=== PATIENT | male | born 1930 | race Caucasian/White ===

== ENCOUNTER 2017-06-22 19:43 | Observation (INO) | payer OTHER, BC ==
--- NOTE | 2017-06-22 20:00 | PDOC ---
History of Present Illness - General History Source: Patient, Family (Daughter) Exam Limitations: No Limitations - History of Present Illness Initial Comments: 06/22/17 20:54 The patient is a 77 year old male, with a significant past medical history of Colon/Rectal CA, PPM, CVA (2004), Diabetes, HTN, who presents to the emergency department s/p weakness to L side today afternoon. As per daughter at bedside, patient was at home with VNS at approximately 2 pm when they noticed the patient was more weak than usual. Patient was on a phone call and was immediately agitated. As the patient got up from his seat, he was unable to ambulate and felt very weak. EMS was called to the home for possible CVA/TIA however patient was increasingly agitated. As per EMS, patient was given Versed and was brought to the ED for further evaluation. Patient denies any falls, injury or trauma. Patient also reports blurring of R eye which he reports is chronic.He denies chest pain, headache or dizziness. He denies fever, chills, abdominal pain, nausea, vomit, diarrhea or constipation. He denies dysuria, frequency, urgency or hematuria. Allergies: NKA Past surgical history: Colon resection, appendectomy, PPM placement Social history: Former smoker PCP: Dr. Mantilla <Raissa Zamorano - Last Filed: 06/22/17 22:07> <So Bernstein - Last Filed: 06/23/17 00:14> - General Stated Complaint: STROKE NIH Stroke Scale - Last Known Well Date/Time & Onset Date Last Known Well: 06/22/17 Time Last Known Well: 14:00 - Initial Evaluation Level of consciousness: Alert Ask patient the month and their age: Answers both correctly Ask patient to open & close eyes; make fist and let go: Obeys both correctly Best gaze (horizontal eye movement): Normal Visual field testing: No visual field loss Facial paresis (Show teeth/raise eyebrows/close eyes tight): Minor paralysis ( flattened nasolabial fold, asymmetry on smiling) (L face) Motor Function: Left Arm: Normal Motor Function: Right Arm: Normal (extends arm 90 (or 45) degrees for 10 seconds without drift Motor Function: Left Leg: Normal (extends leg 30 degrees for 5 seconds without drift) Motor Function: Right Leg: Normal (extends leg 30 degrees for 5 seconds without drift) Limb Ataxia: No ataxia Sensory(Use pinprick test arms,legs,trunk,face/side to side): Normal Best language (Describe picture, name items, read sentences): No Aphasia Dysarthria (read several words): Normal articulation Extinction and Inattention: No abnormality - Total Score NIH Stroke Scale Score: 1 <So Bernstein - Last Filed: 06/23/17 00:14> Past History <Raissa Zamorano - Last Filed: 06/22/17 22:07> - Past Medical History Cancer: Yes (colon/rectal) Cardiac Disorders: Yes (ppm) CVA: Yes Diabetes: Yes HTN: Yes Hypercholesterolemia: Yes - Surgical History Abdominal Surgery: Yes (colon resection) Appendectomy: Yes Cardiac Surgery: Yes (ppm, vaulve) Neurologic Surgery: Yes (back) - Psycho/Social/Smoking Cessation Hx Anxiety: No Suicidal Ideation: No Smoking History: Former smoker Have you smoked in the past 12 months: No Hx Alcohol Use: No Drug/Substance Use Hx: No Substance Use Type: Alcohol <So Bernstein - Last Filed: 06/23/17 00:14> - Past Medical History Allergies/Adverse Reactions: Allergies Allergy/AdvReac Type Severity Reaction Status Date / Time No Known Allergies Allergy Verified 06/22/17 20:06 Home Medications: Ambulatory Orders Aspirin Coated [Ecotrin -] 81 mg PO DAILY 06/22/17 Donepezil HCl [Aricept -] 5 mg PO DAILY 06/22/17 Fenofibrate Nanocrystallized [Fenofibrate] 145 mg PO DAILY 06/22/17 Furosemide [Lasix -] 20 mg PO DAILY 06/22/17 Linagliptin [Tradjenta] 5 mg PO DAILY 06/22/17 Nebivolol HCl [Bystolic] 20 mg PO DAILY 06/22/17 Nisoldipine [Sular] 24 mg PO DAILY 06/22/17 Pravastatin Sodium [Pravachol (Nf)] 40 mg PO HS 06/22/17 Tamsulosin HCl [Flomax] 0.4 mg PO DAILY 06/22/17 Review of Systems - Review of Systems Able to Perform ROS?: Yes Comments:: 06/22/17 20:55 CONSTITUTIONAL: Absent: fever, chills, diaphoresis, generalized weakness, malaise, loss of appetite HEENT: Absent: rhinorrhea, nasal congestion, throat pain, throat swelling, difficulty swallowing, mouth swelling, ear pain, eye pain, visual Changes CARDIOVASCULAR: Absent: chest pain, syncope, palpitations, irregular heart rate, lightheadedness , peripheral edema RESPIRATORY: Absent: cough, shortness of breath, dyspnea with exertion, orthopnea, wheezing, stridor, hemoptysis GASTROINTESTINAL: Absent: abdominal pain, abdominal distension, nausea, vomiting, diarrhea, constipation, melena, hematochezia GENITOURINARY: Absent: dysuria, frequency, urgency, hesitancy, hematuria, flank pain, genital pain MUSCULOSKELETAL: Absent: myalgia, arthralgia, joint swelling SKIN: Absent: rash, itching, pallor HEMATOLOGIC/IMMUNOLOGIC: Absent: easy bleeding, easy bruising, lymphadenopathy, frequent infections ENDOCRINE: Absent: unexplained weight gain, unexplained weight loss, heat intolerance, cold intolerance NEUROLOGIC: Absent: headache, focal weakness or paresthesias, dizziness, unsteady gait, seizure, mental status changes, bladder or bowel incontinence PSYCHIATRIC: Absent: anxiety, depression, suicidal or homicidal ideation, hallucinations. <Raissa Zamorano - Last Filed: 06/22/17 22:07> *Physical Exam - Vital Signs Last Vital Signs Temp Pulse Resp BP Pulse Ox 98.5 F 72 19 132/75 97 06/22/17 19:56 06/22/17 19:56 06/22/17 19:56 06/22/17 19:56 06/22/17 19:56 - Physical Exam Comments: 06/22/17 20:55 GENERAL: Well developed, well nourished. Awake and alert. No acute distress. HEENT: Normocephalic, atraumatic. PERRLA, EOMI. No conjunctival pallor. Sclera are non- icteric. Moist mucous membranes. Oropharynx is clear. NECK: Supple. Full ROM. No JVD. Carotid pulses 2+ and symmetric, without bruits. No thyromegaly. No lymphadenopathy. CARDIOVASCULAR: Regular rate and rhythm. No murmurs, rubs, or gallops. Distal pulses are 2+ and symmetric. PULMONARY: No evidence of respiratory distress. Lungs clear to auscultation bilaterally. No wheezing, rales or rhonchi. ABDOMINAL: Soft. Non-tender. Non-distended. No rebound or guarding. No organomegaly. Normoactive bowel sounds. MUSCULOSKELETAL Normal range of motion at all joints. No bony deformities or tenderness. No CVA tenderness. EXTREMITIES: No cyanosis. No clubbing. No edema. No calf tenderness. SKIN: Warm and dry. Normal capillary refill. No rashes. No jaundice. NEUROLOGICAL: Alert, awake, appropriate. Cranial nerves 2-12 intact. No deficits to light touch and temperature in face, upper extremities and lower extremities. No motor deficits in the in face, upper extremities and lower extremities. Normoreflexic in the upper and lower extremities. Normal speech. Toes are downgoing bilaterally. Gait is normal without ataxia. + L facial droop. +Pupils are 2 mm. No Courtland Palsy. PSYCHIATRIC: Cooperative. Good eye contact. Appropriate mood and affect. <Raissa Zamorano - Last Filed: 06/22/17 22:07> Heart Score/ECG Review - ECG Intrepretation Comment:: 06/22/17 21:23 sinus at 66 w 1st degree av block, interventricular conduction delay, t wave flattening diffusely <So Bernstein - Last Filed: 06/23/17 00:14> ED Treatment Course - LABORATORY CBC & Chemistry Diagram: 06/22/17 20:25 06/22/17 20:25 - ADDITIONAL ORDERS Additional order review: 06/22/17 20:25 RBC 4.79 MCV 94.0 MCHC 34.4 RDW 12.9 MPV 10.0 Neutrophils % 71.8 Lymphocytes % 17.5 Monocytes % 7.4 Eosinophils % 2.9 Basophils % 0.4 <Raissa Zamorano - Last Filed: 06/22/17 22:07> - LABORATORY CBC & Chemistry Diagram: 06/22/17 20:25 06/22/17 23:15 <So Bernstein - Last Filed: 06/23/17 00:14> Medical Decision Making - Medical Decision Making 06/22/17 21:[address] noncontrast IMPRESSION: No definite CT evidence of acute intracranial pathology is noted. 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 MRI evaluation is suggested, nonemergent unless otherwise clinically indicated. Small chronic right frontal subcortical infarct. Moderate periventricular chronic microvascular ischemic changes. A small amount of nonspecific fluid accumulation is seen within the right mastoid air cells. Reported By: Gil Herron MD 06/22/17 21:[address] Gaona for neuro surgery consult. Dr. Gaona responded to the page and the patients case was discussed. 06/22/17 21:[address] Randall. Awaiting call back. 06/22/17 21:52 Microblogged Hospitalists for possible admission. 06/22/17 22:00 Dr. Randall returned the page. Patient's case was discussed. Dr. Randall agrees with a 48 hr full admission. Requesting repeat head CT tomorrow. Agrees with admission to hospitalist. <Raissa Zamorano - Last Filed: 06/22/17 22:07> - Critical Care Time Total Critical Care Time (minutes): 30 Critical Care Statement: The care of this patient involved high complexity decision making to prevent further life threatening deterioration of the patient 's condition and/or to evaluate & treat vital organ system(s) failure or risk of failure. - Medical Decision Making 06/22/17 21:24 87yo male with mild L facial droop since 2p today. 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 no surgical intervention at this time. will see in consult. call placed to Dr. Randall - neuro call placed to IM for admission 06/22/17 22:22 case discussed with IM who accepts pt to service. 06/23/17 00:14 Dr. Kruse accepts pt to service <So Bernstein - Last Filed: 06/23/17 00:14> *DC/Admit/Observation/Transfer - Attestations Scribe Attestion: 06/22/17 20:56 Documentation prepared by Raissa Zamorano, acting as medical aide for So Bernstein DO <Raissa Zamorano - Last Filed: 06/22/17 22:07> - Discharge Dispostion Admit: Yes - Attestations Physician Attestion: 06/22/17 21:48 I, Dr. So Bernstein, DO, attest that this document has been prepared under my direction and personally reviewed by me in its entirety. I further attest, that it accurately reflects all work, treatment, procedures and medical decision -making performed by me. <So Bernstein - Last Filed: 06/23/17 00:14> Diagnosis at time of Disposition: Subdural hematoma, Facial droop - Discharge Dispostion Condition at time of disposition: Guarded - Referrals
[2017-06-22 20:05] VITALS: BMI 34.1
[2017-06-22] MEDS ORDERED: SODIUM CHLORIDE 1,000 ML IV SCH (20:30)
[2017-06-22 20:45] LABS: BASOPHIL 0.4 % (0-2.0); EOSINOPHIL 2.9 % (0-4.5); MCH 32.3 pg (25.7-33.7); MCHC 34.4 g/dl (32.0-35.9); NEUTROPHILS 71.8 % (42.8-82.8); PLATELET COUNT 213 K/MM3 (134-434); RDW 12.9 % (11.9-15.9); WHITE BLOOD COUNT 7.5 K/mm3 (4.0-10.0)
[2017-06-22 20:47] LABS: URINE APPEARANCE CLEAR; URINE BILIRUBIN NEGATIVE (NEGATIVE); URINE BLOOD NEGATIVE (NEGATIVE); URINE COLOR STRAW; URINE GLUCOSE (UA) NEGATIVE (NEGATIVE); URINE KETONE NEGATIVE (NEGATIVE); URINE LEUK ESTERASE NEGATIVE (NEGATIVE); URINE NITRITE NEGATIVE (NEGATIVE); URINE PROTEIN NEGATIVE (NEGATIVE); URINE UROBILINOGEN NEGATIVE mg/dL (0.2-1.0)
[2017-06-22 21:12] LABS: INR 1.09 (0.82-1.09)
[2017-06-22 21:15] LABS: ACTIVATED PTT 31.8 SECONDS (26.9-34.4)
[2017-06-22] MEDS ORDERED: morphine CARPU-JECT 2 MG/1 ML DISP.SYRIN IVPUSH ONE (21:35)
[2017-06-22] MEDS ORDERED: morphine CARPU-JECT 2 MG/1 ML DISP.SYRIN ONE (21:36)
[2017-06-22] MEDS ORDERED: MIDAZOLAM HCL 2 MG/2 ML SINGLE DOSE VIAL IVPUSH ONE (22:16)
[2017-06-22] MEDS ORDERED: MIDAZOLAM HCL 2 MG/2 ML SINGLE DOSE VIAL ONE (22:25)
--- NOTE | 2017-06-22 22:32 | HP ---
CHIEF COMPLAINT: " Left sided weakness" PCP: Dr. Oates Rn Lvn: Dr. Hansen Pacemaker supervisor area: Dr. Dudley Neurologist: Dr. Lindsay Orthopedist: Dr. Holden Cordero HISTORY OF PRESENT ILLNESS: History obtained from the daughter, patient had just received versed. The patient is a 87 year old male, with a significant past medical history of Colon/Rectal CA, PPM, CVA (2004) with residual weakness and peripheral loss of vision and memory loss, Diabetes, HTN brought via EMS with the chief complaint of weakness to L side today afternoon. As per the daughter, the aid noticed him to have left sided weakness. While going to the bathroom, he was leaning towards the left side which worsened during the course of the day. At baseline, he uses a cane for a short distance and walker for long distance unassisted. But today, he needed assistance to walk. Patient was also very agitated. Patient has h/o peripheral loss of vision. But today mentioned that it was difficult for him to open the right eye and had bilateral visual loss briefly. When patients family insisted to take him to the hospital, he denied and didn't want to come to the hospital. Family called 911 and brought him here. Upon arrival to the ED, he got very agitated and received Versed. Prior to receiving the medication, he was awake, alert without neurological deficits and normal vision as per ED physician. ER course was notable for: (1) Afebrile, hemodynamically stable. (2) CT head. (3) Versed, Morphine Recent Travel: None PAST MEDICAL HISTORY: Colon/Rectal CA, PPM, CVA (2004) with residual weakness and peripheral loss of vision and memory loss, Diabetes, HTN PAST SURGICAL HISTORY: As mentioned above. 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 Drugs: Denies Family History: Unknown. Allergies No Known Allergies Allergy (Verified 06/22/17 20:06) HOME MEDICATIONS: Home Medications Medication Instructions Recorded Aspirin Coated [Ecotrin -] 81 mg PO DAILY 06/22/17 Donepezil HCl [Aricept -] 5 mg PO DAILY 06/22/17 Fenofibrate Nanocrystallized 145 mg PO DAILY 06/22/17 [Fenofibrate] Furosemide [Lasix -] 20 mg PO DAILY 06/22/17 Linagliptin [Tradjenta] 5 mg PO DAILY 06/22/17 Nebivolol HCl [Bystolic] 20 mg PO DAILY 06/22/17 Nisoldipine [Sular] 24 mg PO DAILY 06/22/17 Pravastatin Sodium [Pravachol (Nf)] 40 mg PO HS 06/22/17 Tamsulosin HCl [Flomax] 0.4 mg PO DAILY 06/22/17 REVIEW OF SYSTEMS: Unable to obtain since patient was sedated. PHYSICAL EXAMINATION Vital Signs - 24 hr 06/22/17 19:56 Temperature 98.5 F Pulse Rate 72 Respiratory 19 Rate Blood Pressure 132/75 O2 Sat by Pulse 97 Oximetry (%) GENERAL: Moderately obese male, sleeping comfortably in bed, arousable, in no acute distress. HEAD: Normal with no signs of trauma. EYES: No pallor or icterus. EARS, NOSE, THROAT: Ears normal. Moist mucous membranes. NECK: Supple, no JVD, no masses. LUNGS: B/L Breath sounds equal, clear to auscultation bilaterally. No wheezes, and no crackles. No accessory muscle use. HEART: Regular rate and rhythm, normal S1 and S2 with soft systolic murmur. ABDOMEN: Old surgical scar marie, Soft, nontender, not distended, normoactive bowel sounds, no guarding, no rebound, no masses. No hepatomegaly or splenomegaly. MUSCULOSKELETAL: Normal range of motion at all joints. No bony deformities or tenderness. No CVA tenderness. UPPER EXTREMITIES: 2+ pulses, warm, well-perfused. No cyanosis. No clubbing. No peripheral edema. LOWER EXTREMITIES: 2+ pulses, warm, well-perfused. No calf tenderness. + pitting edema. NEUROLOGICAL: Questionable left sided facial droop, ROM in all extremities normal, babinski sign downgowing, reflexes in all extremities intact, rest of the neuro exam unable to perform. PSYCHIATRIC: Sleeping. SKIN: Warm, dry, normal turgor, no rashes or lesions noted, normal capillary refill. Laboratory Results - last 24 hr 06/22/17 06/22/17 06/22/17 20:25 20:25 20:25 WBC 7.5 RBC 4.79 Hgb 15.5 Hct 45.0 MCV 94.0 MCH 32.3 MCHC 34.4 RDW 12.9 Plt Count 213 MPV 10.0 Neutrophils % 71.8 Lymphocytes % 17.5 Monocytes % 7.4 Eosinophils % 2.9 Basophils % 0.4 INR 1.09 PTT (Actin FS) 31.8 Sodium Potassium Chloride Carbon Dioxide Anion Gap BUN Creatinine Creat Clearance w eGFR Random Glucose Calcium Total Bilirubin AST ALT Alkaline Phosphatase Creatine Kinase Troponin I Total Protein Albumin Triglycerides Cholesterol Total LDL Cholesterol HDL Cholesterol Urine Color Straw Urine Appearance Clear Urine pH 6.0 Urine Protein Negative Urine Glucose (UA) Negative Urine Ketones Negative Urine Blood Negative Urine Nitrite Negative Urine Bilirubin Negative Urine Urobilinogen Negative Ur Leukocyte Esterase Negative Blood Type Antibody Screen Spec Expiration Date 06/22/17 06/22/17 20:25 20:25 WBC RBC Hgb Hct MCV MCH MCHC RDW Plt Count MPV Neutrophils % Lymphocytes % Monocytes % Eosinophils % Basophils % INR PTT (Actin FS) Sodium Cancelled Potassium Cancelled Chloride Cancelled Carbon Dioxide Cancelled Anion Gap Cancelled BUN Cancelled Creatinine Cancelled Creat Clearance w eGFR Cancelled Random Glucose Cancelled Calcium Cancelled Total Bilirubin Cancelled AST Cancelled ALT Cancelled Alkaline Phosphatase Cancelled Creatine Kinase Cancelled Troponin I Cancelled Total Protein Cancelled Albumin Cancelled Triglycerides Cancelled Cholesterol Cancelled Total LDL Cholesterol Cancelled HDL Cholesterol Cancelled Urine Color Urine Appearance Urine pH Urine Protein Urine Glucose (UA) Urine Ketones Urine Blood Urine Nitrite Urine Bilirubin Urine Urobilinogen Ur Leukocyte Esterase Blood Type Cancelled Antibody Screen Cancelled Spec Expiration Date Cancelled CT head without contrast: No definite CT evidence of acute intracranial pathology is noted. 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 MRI evaluation is suggested, nonemergent unless otherwise clinically indicated. Small chronic right frontal subcortical infarct. Moderate periventricular chronic microvascular ischemic changes. A small amount of nonspecific fluid accumulation is seen within the right mastoid air cells. ASSESSMENT/PLAN: The patient is a 87 year old male, with a significant past medical history of Colon/Rectal CA, PPM, CVA (2004) with residual weakness and peripheral loss of vision and memory loss, Diabetes, HTN brought via EMS with the chief complaint of weakness to L side today afternoon admitted for evaluation to r/o stroke vs TIA. # Possible TIA, less likely a CVA-has chronic SDH Complained of left sided weakness at home, with questionable left sided facial droop, transient visual loss. NIH scale in the ED was 1, duration of symptoms unknown, not a candidate of TPA On arrival, he was afebrile, hemodynamically stable. EKG: sinus at 66 w 1st degree av block, interventricular conduction delay, t wave flattening diffusely CT head showed: chronic subdural hematoma, ED called Neurosurgeon-no surgical intervention at this time. MRI brain cannot be done as he has a pacemaker. ED discussed case with Dr. Randall. Will repeat Head CT in the morning. Admitted in Tele Continuous cardiac monitoring Carotid doppler, ECHO, Lipid, A1c ordered for am Continue Aspirin 81mg Daily Physical therapy requested Swallow evaluation in am. # Dementia As per patients family, he has memory loss that is worsening over the past few months, patient gets very agitated at times, verbally abuses, family says he has never been diagnosed with Alzheimers. Continue Donepeil 5mg, would consider adding Nemanda. # Diabetes Mellitus A1c pending ISS Continue Tradjenta Watch for hypoglycemic episodes # Hyperlipidemia Continue Statin 40mg # Hypertension- controlled Continue Bystolic 20mg Daily Lasix 20mg Daily # BPH Continue Tamsulosin # FEN Not on any IV fluids, patient refused. Electrolytes WNL, will repeat in am NPO except meds, continue diet after swallow eval. # Prophylaxis For DVT: Not on Heparin sq-has h/o SDH, on SCDs For GI: Not indicated # Code Status: Full Code # Dispo: Admitted in Tele. Duration of stay unknown. Illness, Investigation and Plan of care explained to the patients daughter. She verbalized understanding. HCP: Daughters: Ivette Vasquez ([phone]) and Philipp León [phone]. Case seen and discussed with Dr. Stiles. Visit type - Emergency Visit Emergency Visit: Yes ED Registration Date: 06/22/17 Care time: The patient presented to the Emergency Department on the above date and was hospitalized for further evaluation of their emergent condition. - New Patient This patient is new to me today: Yes Date on this admission: 06/22/17 - Critical Care Critical Care patient: No
[2017-06-22 23:57] LABS: ALBUMIN 3.4 g/dl (3.4-5.0); ALK PHOS 36 U/L (45-117); ANION GAP 10 (8-16); BILIRUBIN,TOTAL 0.4 mg/dL (0.2-1.0); CALCIUM 8.4 mg/dL (8.5-10.1); CO2 26 mmol/L (21-32); CREATININE 1.1 mg/dL (0.7-1.3); GLUCOSE,RANDOM 129 mg/dL (74-106); SGOT/AST 16 U/L (15-37); SGPT/ALT 20 U/L (12-78); TOT PROT 6.6 g/dl (6.4-8.2)
--- NOTE | 2017-06-23 00:28 | PN ---
Teaching Attending Note Name of Resident: Marlene Barr ATTENDING PHYSICIAN STATEMENT I saw and evaluated the patient. I reviewed the resident's note and discussed the case with the resident. I agree with the resident's findings and plan as documented. SUBJECTIVE: 87 year old male that was brought by family member due to Left sided facial weakness associated with weakness and inability to ambulate that was noticed around 2 PM in the afternoon . He was also agitated and received Versed upon arrival of EMS. Patient is unable to provide detailed history PMH Colorectal CA, PPM, CVA (2004), Diabetes HTN Sx Hx colon resection PPM appendectomy Social Hx former smoker Home Medication List Medication Instructions Recorded Confirmed Type Aspirin Coated [Ecotrin -] 81 mg PO DAILY 06/22/17 06/22/17 History Donepezil HCl [Aricept -] 5 mg PO DAILY 06/22/17 06/22/17 History Fenofibrate Nanocrystallized 145 mg PO DAILY 06/22/17 06/22/17 History [Fenofibrate] Furosemide [Lasix -] 20 mg PO DAILY 06/22/17 06/22/17 History Linagliptin [Tradjenta] 5 mg PO DAILY 06/22/17 06/22/17 History Nebivolol HCl [Bystolic] 20 mg PO DAILY 06/22/17 06/22/17 History Nisoldipine [Sular] 24 mg PO DAILY 06/22/17 06/22/17 History Pravastatin Sodium [Pravachol (Nf)] 40 mg PO HS 06/22/17 06/22/17 History Tamsulosin HCl [Flomax] 0.4 mg PO DAILY 06/22/17 06/22/17 History Active Medications Generic Name Dose Route Start Last Admin Trade Name Freq PRN Reason Stop Dose Admin Aspirin 81 mg 06/23/17 10:00 Ecotrin - PO DAILY DEBRA Atorvastatin Calcium 10 mg 06/23/17 22:00 Lipitor - PO HS DEBRA Donepezil HCl 5 mg 06/23/17 10:00 Aricept - PO DAILY DEBRA Fenofibric Acid 135 mg 06/23/17 10:00 Trilipix - PO DAILY DEBRA Furosemide 20 mg 06/23/17 10:00 Lasix - PO DAILY DEBRA Sodium Chloride 1,000 mls @ 42 mls/hr 06/22/17 20:30 06/22/17 21:12 Normal Saline - IV 42 mls/hr ASDIR DEBRA Administration Insulin Aspart 1 vial 06/23/17 07:00 Novolog Vial Sliding Scale - SQ ACHS [facility] Protocol Nebivolol 20 mg 06/23/17 10:00 Bystolic - PO DAILY DEBRA Non-Formulary Medication 5 mg 06/23/17 10:00 Linagliptin [Tradjenta] PO DAILY DEBRA Non-Formulary Medication 24 mg 06/23/17 10:00 Nisoldipine [Sular] PO DAILY [facility] Tamsulosin HCl 0.4 mg 06/23/17 08:30 Flomax - PO DAILY@0830 [facility] OBJECTIVE: Vital Signs Temperature 98.5 F 06/22/17 19:56 Pulse Rate 72 06/22/17 19:56 Respiratory Rate 19 06/22/17 19:56 Blood Pressure 132/75 06/22/17 19:56 O2 Sat by Pulse Oximetry (%) 97 06/22/17 19:56 CARDIOVASCULAR: Regular rate and rhythm. No murmurs, rubs, or gallops. Distal pulses are 2+ and symmetric. PULMONARY: No evidence of respiratory distress. Lungs clear to auscultation bilaterally. No wheezing, rales or rhonchi. ABDOMINAL: Soft. Non-tender. Non-distended. No rebound or guarding. No organomegaly. Normoactive bowel sounds. MUSCULOSKELETAL Normal range of motion at all joints. No bony deformities or tenderness. No CVA tenderness. EXTREMITIES: No cyanosis. No clubbing. No edema. No calf tenderness. SKIN: Warm and dry. Normal capillary refill. No rashes. No jaundice. NEUROLOGICAL: No motor deficits appreciated . 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 MRI evaluation is suggested, nonemergent unless otherwise clinically indicated. Small chronic right frontal subcortical infarct. Moderate periventricular chronic microvascular ischemic changes. A small amount of nonspecific fluid accumulation is seen within the right mastoid air cells. Reported By: Gil Herron MD ASSESSMENT AND PLAN: 1. suspected CVA / TIA - small right subdural hematoma, likely chronic - will repeat CT in am , unable to do do MRI - neuro checks Q4 hr - neurology evaluation -c/w aspirin - c/w Lipitor - PT /OT eval - speech and swallow eval 2. Dementia with agitation - c/w aricept - fall precautions 3. DM - stable - monitor bG - insulin SS 4. DVT PPX - heparin SC
[2017-06-23] MEDS ORDERED: HEPARIN NA (PORCINE) 5,000 UNITS/ML 1ML VIAL SQ SCH (02:00)
[2017-06-23] MEDS: INSULIN SLIDING SCALE (NOVOLOG) 1 VIAL SQ SCH ×3 (06:23→18:53)
[2017-06-23] MEDS ORDERED: sitaGLIPtin PHOSPHATE 100 MG TABLET (FP) PO SCH (07:00)
[2017-06-23 07:26] LABS: MCH 31.4 pg (25.7-33.7); MEAN CELL VOLUME 95.4 fl (80-96); MEAN PLT VOLUME 9.4 fl (7.5-11.1); PLATELET COUNT 197 K/MM3 (134-434); RDW 12.8 % (11.9-15.9); WHITE BLOOD COUNT 7.8 K/mm3 (4.0-10.0)
[2017-06-23 07:59] LABS: ALBUMIN 3.4 g/dl (3.4-5.0); ANION GAP 8 (8-16); CALCIUM 9.1 mg/dL (8.5-10.1); CO2 28 mmol/L (21-32); GLUCOSE,RANDOM 108 mg/dL (74-106); MAGNESIUM 2.1 mg/dL (1.8-2.4)
[2017-06-23 08:07] LABS: ALK PHOS 35 U/L (45-117); BILIRUBIN,TOTAL 0.6 mg/dL (0.2-1.0); CHOLESTEROL 147 mg/dL (50-200); CPK 70 IU/L (39-308); PHOSPHOROUS 3.5 mg/dL (2.5-4.9); SGOT/AST 18 U/L (15-37); SGPT/ALT 18 U/L (12-78); THYROID STIMULATING HORMONE 1.77 uIU/ml (0.358-3.74); TOT PROT 6.8 g/dl (6.4-8.2); TROPONIN I 0.02 ng/ml (0.00-0.05)
[2017-06-23] MEDS ORDERED: TAMSULOSIN HCL 0.4 MG CAP.ER.24H (FP) PO SCH (08:30)
--- NOTE | 2017-06-23 08:53 | EKG ---
Test Reason : Blood Pressure : / mmHG Vent. Rate : 066 BPM Atrial Rate : 066 BPM P-R Int : 298 ms QRS Dur : 158 ms QT Int : 518 ms P-R-T Axes : -01 010 004 degrees QTc Int : 543 ms Atrial-paced rhythm with prolonged AV conduction NON-SPECIFIC INTRA-VENTRICULAR CONDUCTION BLOCK ABNORMAL ECG NO PREVIOUS ECGS AVAILABLE Confirmed by MICHELLE SOUSA MD ([id number]) on 06/23/2017 8:53:26 AM Referred By: Confirmed By:MICHELLE SOUSA MD
--- NOTE | 2017-06-23 09:11 | CONSULT ---
Consult - text type - Consultation Consultation Note: Asked to see this 87 year old male with history of CVA and transient hemiparesis /facial droop which prompted ER evaluation. Patient has returned to his baseline. CT demonstrated very small Right convexity extra-axial collections which are low density and represent either chronic subdural hematoma or subdural hygroma. There is no suggestion of acuity or any significant mass effect. There is no acute need for Neurosurgical intervention for these collections and I would not recommend routine follow up imaging. If patient develops symptoms, certainly at that point repeat CT could be considered. MRI was suggested, however cannot be performed due to pacemaker. On exam, patient has no pronator drift and no extinction to double simultaneous stimulation. Patient was able to stand briefly, but felt dizzy which may be orthostasis associated with dehydration (patient has been NPO and strongly desires to eat/ drink). There is no contraindication to feeding patient and considering discharge from a Neurosurgical standpoint. Will defer to Dr. Randall regarding final determination that there is no active cerebrovascular process. My understanding is that carotid ultrasound is pending.
[2017-06-23] MEDS ORDERED: NEBIVOLOL 10 MG TABLET (FP) PO SCH (10:00)
[2017-06-23] MEDS ORDERED: ASPIRIN COATED 81 MG TABLET.EC PO SCH (10:00)
[2017-06-23] MEDS ORDERED: DONEPEZIL HCL 5 MG TABLET (FP) PO SCH (10:00)
[2017-06-23] MEDS ORDERED: FUROSEMIDE 20 MG TABLET (FP) PO SCH (10:00)
[2017-06-23] MEDS ORDERED: NISOLDIPINE PO SCH (10:00)
[2017-06-23] MEDS ORDERED: FENOFIBRIC ACID 135 MG CAP PO SCH (10:00)
--- NOTE | 2017-06-23 10:28 | CONSULT ---
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 History Source: Patient, Medical Record Limitations to Obtaining History: Clinical Condition - Advance Directives Advance Directives: Yes: Health Care Proxy - Smoking History Smoking history: Former smoker Have you smoked in the past 12 months: No If you are a former smoker, when did you quit?: 20 YRS AGO - Alcohol/Substance Use Hx Alcohol Use: Yes History - Admission Reason For Visit: FACIAL WEAKNESS - Diagnostics CT Scan: Report Reviewed MRI: Report Reviewed (MRI evaluation is suggested, nonemergent unless otherwise clinically indicated. Small chronic right frontal subcortical infarct. Moderate periventricular chronic microvascular ischemic changes. A small amount of nonspecific fluid accumulation is seen within the right mastoid air cells.) - General Mental Status: Alert and Oriented (hospital,jun 2017,85), Awake and Alert, Able to Follow Commands, Combative (but said to be improving. Paranoid-like statements) Attention: Intact Ability to Follow Directions: Poor Head/Neck Control: Good - Hearing Hearing: Impaired Hearing Aide: No With Patient: No Speech Evaluation - Communication Primary Language: ANDORRAN Secondary Language: AMHARIC (fluent) Communication: Yes: Within Normal Limits Oral Expression Ability: Yes: No Impairment - Speech Production Able to Make Needs Known: Yes: WNL Intelligibility: Yes: WNL - Speech Characteristics Voice Loudness: Normal Voice Pitch: Yes: Normal Voice Phonatory-based Quality: Yes: Normal Speech Pattern: Normal Speech Clarity: < 100% Nasal Resonance: Normal Articulation: Yes: Precise Rate of Speech: Intact - Language/Auditory Comprehension Follows: Yes: 1 Stage Simple Commands Observation: Able to respond to yes/no queries: Yes - Language/Verbal Expression Able to Respond to Simple Queries: Yes: WNL Able to Communicate Wants and Needs: Yes: WNL Functional Communication Status: Yes: WNL - Swallow Evaluation/Bedside Assessment Current Nutritional Intake: Regular, Thin Liquids Oral Secretions: Yes: WFL Dentition: Yes: Adequate Facial Symmetry at Rest: Facial Droop Left Facial Symmetry on Retraction: Symmetrical Facial Movement: Controlled Against Resistance Opening: Normal Against Resistance Closing: Normal Pucker Lips: Normal Lingual Movement: Normal, Symmetric Lingual Speed of Movement: Normal Lingual Movement Strgth Against Opposition: Normal Lingual Movement Characteristics: Normal Velopharyngeal Movement: Normal Laryngeal Elevation: WFL Laryngeal Movement: Able to Palpate Rate of Intake: WFL Labial Seal: WFL Chewing: WFL Oral Prep Time: WFL A-P Transit: WFL Pocketing: None Timing of Swallow: WFL Coughing/Throat Clear: No Change in Voice: No Recommendations - Speech Evaluation, Impression/Plan Impression: Left facial weakness at rest. Paranoid-like statements, however, no dysarthria,aphasia,dysphagia identified. - Dysphagia Impressions/Plan Swallowing Skills: [facility] Dysphagia Impressions: No Impairment *Silent aspiration: cannot be R/O at bedside - Recommendations Diet Consistency: Regular Medication Administration: Whole with water Liquids: Thin Liquids
[2017-06-23 17:50] VITALS: BP 138/68; PULSE 62; TEMP 98.1
--- NOTE | 2017-06-23 18:17 | CONSULT ---
Consult - text type - Consultation Consultation Note: NEUROLOGY CONSULTATION is greatly appreciated: This 87 yo RH man lives with his family. PMH sig for HTN, DM, Chol and ASHD. S/P PPM and CVA 2004. Rectal cancer. Known cognitive decline. On donepezil (5mg), ASA, fenofibrate, tadjenta, bystolic, nisoldipine, pravastatin and tamsulosin. Admitted with new left sided weakness, decrease ambulation and agitation. CT in ER (reviewed): reveals moderate, diffuse atrophy; severe, diffuse microvascular changes and a tiny, hypodence (chronic) Right parietal subdural hematoma No mass effect. Carotid duplex: calcification and scattered plaques but no significant hemodynamic stenosis. TIAGO: No bruits. Cor reg. No evidence of external head trauma. NEURO: Intermittently agitated. ?delusional/paranoid. Ox Frederic. 2016. Erwin CN: Full de leon and EOM's. No facial droop. Gag OK Motor: Min Left drift. Left foot rests everted. Decreased CARLOS's (L>R) . Areflexic in legs. Left Babinski. Coord: No obvious dystaxia Sensory: Decreased vib in feet. Gait: Unsteady. Left leg Kierra. IMP: 1. Mild left hemiparesis due to Subdural collection +/- New CVA (lacunar infarction). 2. Mild OMS 3. Diabetic peripheral neuropathy. Suggest: Repeat CT of head or non-contrast MRI Check B12, TSH, RPR, ESR, CRP Quetiapine 25 mg PO q 6 hrs PRN agitation or for sleep. PT eval and Rx: Patient is essentially non-ambulatory at this time and is at risk for self injury...he may need SNF or rehab stint for gait wit walker. Thank you very much, Winston Randall MD
--- NOTE | 2017-06-23 18:18 | DS ---
Physical Exam: SUBJECTIVE: Patient seen and examined. Pt was very agitated overnight. He stated "I have no weakness, I don't know why my family made me come." He reports no complaints. OBJECTIVE: Vital Signs Period Temp Pulse Resp BP Sys/Pickard Pulse Ox Last 24 Hr 97.1 F-98.1 F 62-82 18-20 122-149/68-76 96-98 PHYSICAL EXAM GENERAL: The patient is awake, alert, and fully oriented, sitting on bed very agitated. HEAD: Normal with no signs of trauma. EYES: pinpoint pupils, extraocular movements intact, sclera anicteric, conjunctiva clear. ENT: Ears normal, nares patent, oropharynx clear without exudates, moist mucous membranes. NECK: Trachea midline, full range of motion, supple. LUNGS: Breath sounds equal, rales in L lung base HEART: Regular rate and rhythm, S1, S2 without murmur, rub or gallop. ABDOMEN: Soft, nontender, nondistended, normoactive bowel sounds, no guarding, no rebound, no hepatosplenomegaly, no masses. EXTREMITIES: 2+ pulses, warm, well-perfused, no edema. NEUROLOGICAL: Cranial nerves II through XII grossly intact except for a right- sided field deficit. Normal speech, gait not observed. PSYCH: agitated, cursing SKIN: Warm, dry, normal turgor, no rashes or lesions noted. LABS Laboratory Results - last 24 hr 06/22/17 06/23/17 06/23/17 23:15 05:35 05:35 WBC 7.8 RBC 4.57 Hgb 14.4 Hct 43.5 MCV 95.4 MCH 31.4 MCHC 33.0 RDW 12.8 Plt Count 197 MPV 9.4 Sodium 145 145 Potassium 3.6 4.1 Chloride 109 H 109 H Carbon Dioxide 26 28 Anion Gap 10 8 BUN 23 H 22 H Creatinine 1.1 1.0 Creat Clearance w eGFR > 60 > 60 POC Glucometer Random Glucose 129 H 108 H Hemoglobin A1c % Calcium 8.4 L 9.1 Phosphorus 3.5 Magnesium 2.1 Total Bilirubin 0.4 0.6 D AST 16 18 ALT 20 18 Alkaline Phosphatase 36 L 35 L Creatine Kinase 70 Troponin I 0.02 Total Protein 6.6 6.8 Albumin 3.4 3.4 Triglycerides 170 H Cholesterol 147 Total LDL Cholesterol 84 HDL Cholesterol 38 L Vitamin B12 Serum Folate 47 H TSH 1.77 06/23/17 06/23/17 06/23/17 05:35 05:35 05:49 WBC RBC Hgb Hct MCV MCH MCHC RDW Plt Count MPV Sodium Potassium Chloride Carbon Dioxide Anion Gap BUN Creatinine Creat Clearance w eGFR POC Glucometer 105 Random Glucose Hemoglobin A1c % 6.7 H Calcium Phosphorus Magnesium Total Bilirubin AST ALT Alkaline Phosphatase Creatine Kinase Troponin I Total Protein Albumin Triglycerides Cholesterol Total LDL Cholesterol HDL Cholesterol Vitamin B12 242 Serum Folate TSH 06/23/17 06/23/17 12:10 15:48 WBC RBC Hgb Hct MCV MCH MCHC RDW Plt Count MPV Sodium Potassium Chloride Carbon Dioxide Anion Gap BUN Creatinine Creat Clearance w eGFR POC Glucometer 130 141 Random Glucose Hemoglobin A1c % Calcium Phosphorus Magnesium Total Bilirubin AST ALT Alkaline Phosphatase Creatine Kinase Troponin I Total Protein Albumin Triglycerides Cholesterol Total LDL Cholesterol HDL Cholesterol Vitamin B12 Serum Folate TSH CT Head: chronic subdural hematoma and chronic small infarct, no definite acute pathology Carotid doppler: no hemodynamically significant stenosis Echo: mild LVH, MR, and TR. severe valvular aortic stenosis. EKG: atrial-paced rhythm with prolonged AV conduction. HOSPITAL COURSE: 87M w/ hx of colorectal cancer, CVA (2004), DM, and HTN who presented with left- sided weakness per family, and admitted for stroke workup which was negative. CT head, carotid doppler, and echo showed results listed above. Lipid profile revealed an LDL of 84. Because of the subdural hematoma found on CT, no anti- coagulation for possible atrial fibrillation would be started. Pt discharged home on same home medications. Neurosurgery consulted on the case, stated that there is no indication for any neurosurgical intervention to be done. Neurology consulted as well and recommended checking for B12, TSH, RPR, ESR, and CRP. Pt is stable and ready for discharge. Date of Admission:06/22/17 Date of Discharge: 06/23/17 Minutes to complete discharge: 37 Discharge Summary Reason For Visit: FACIAL WEAKNESS Current Active Problems Facial droop (Acute) Left-sided weakness (Acute) Subdural hematoma (Chronic) Condition: Improved - Instructions Diet, Activity, Other Instructions: You presented with left-sided weakness, and we worked you up for a stroke. CT of your head showed a small chronic subdural hematoma and small chronic infarct , but no definite acute pathology. It is possible that you had a transient ischemic attack. Given that you have the hematoma in your head, anti- coagulation is contraindicated. As such, please resume all home medications. If you develop any further concerning symptoms, return to the ED. Please follow up with your PCP within one week. Please follow up with a neurologist within one week. If you don't already have one, we gave you a referral for Dr. Vargas. Please follow up with your leather sorter within two weeks. Referrals: STAFF,NOT ON [Primary Care Provider] - Olivier Vargas MD, FAANS [Staff Physician] - Disposition: HOME - Home Medications Comprehensive Discharge Medication List: Ambulatory Orders Aspirin Coated [Ecotrin -] 81 mg PO DAILY 06/22/17 Donepezil HCl [Aricept -] 5 mg PO DAILY 06/22/17 Fenofibrate Nanocrystallized [Fenofibrate] 145 mg PO DAILY 06/22/17 Furosemide [Lasix -] 20 mg PO DAILY 06/22/17 Linagliptin [Tradjenta] 5 mg PO DAILY 06/22/17 Nebivolol HCl [Bystolic] 20 mg PO DAILY 06/22/17 Nisoldipine [Sular] 24 mg PO DAILY 06/22/17 Pravastatin Sodium [Pravachol -] 40 mg PO HS 06/22/17 Tamsulosin HCl [Flomax -] 0.4 mg PO DAILY 06/22/17 This patient is new to me today: Yes Date on this admission: 06/23/17 Emergency Visit: No Critical Care patient: No - Discharge Referral Referred to [facility] Med P.C.: No
--- NOTE | 2017-06-23 19:54 | PN ---
Teaching Attending Note Name of Resident: Willie Lopes ATTENDING PHYSICIAN STATEMENT I saw and evaluated the patient. I reviewed the resident's note and discussed the case with the resident. I agree with the resident's findings and plan as documented. SUBJECTIVE: evaluated at 1 pm no fever or chills . denies any weakness, or numbness/tingling. no dysphagea daughter reported that pt was noted to lean to L while walking at home. she did not notice any facial droop even in ER. she denies any AMS but he is mad and does not want to be in hospital so he got angry but not confused she reports peripheral visual loss at the time of previous stroke , but she does not know which side OBJECTIVE: NAD, awake and alert , coop[erative and calm MMM. CV: RRR, 3/6 SM at RUSB Lungs : CTAB ext : no edema Neuro : EOMI, small non reactive pupils ( has cataract sx on both ) , no facial droop, nl facial sensation . R peripheral visual field defect . Strength 5/5 in upper and lower extremities proximally and distally. sensation to light touch NL. reflexes 1+ biceps . 0 in knee jerk b/l . ASSESSMENT AND PLAN: 87 y/o man with h/o D CHF , HTN, stroke , PPM , cognitive disorder who presneted after being observed to be leaning to L side 1- Possible TIA. neuro exam revealed R peripheral visual field defect , ( chronic per report) . but no weakness . pt is not confused , but at base line gets agitated. there was no change in MS he might have had a TIA . accidental R sided parietal hematoma vs hygroma is not contributing to his sx , per team discussion with neuro sx Neuro sx recs appreciated , since sx have resolved, CT was not done has pacemaker so can't perform MRI , any way mgt will not change No contra indication to cont asa per neuro sx secondary px for stroke : asa , give lipitor 20 /day for LDL 85 . BP , DM control PPM interrogated , no evidence of A fib, and tele here with no A fib. although he did not pass PT, he is minimally mobile at home , and daughter had declined rehab placement. 2- Aortic stenosis , follow with his hammerer helper . Dr. Villagran family declined rehab
[2017-06-23] MEDS ORDERED: ATORVASTATIN CA 20 MG TABLET (FP) PO SCH (22:00)
[2017-06-23] MEDS ORDERED: ATORVASTATIN CA 10 MG TABLET (FP) PO SCH (22:00)
== END 2017-06-23 19:58 | disposition home or self-care (01) ==
LOC: JER 19:43 → SUPCPDRO 19:43 → INTOOBSV 22:23 → JERBED 22:23 → J4W 06-23 01:31
PROVIDERS: ADMIT Internal Medicine; ATTEND Internal Medicine
PROC: 3E033NZ Introduction of Analgesics, Hypnotics, Sedatives into Peripheral Vein, Percutaneous Approach (ICD-10-PCS; principal; 2017-06-22)
PROC: 3E033GC Introduction of Other Therapeutic Substance into Peripheral Vein, Percutaneous Approach (ICD-10-PCS; 2017-06-22)
PROC: 3E0337Z Introduction of Electrolytic and Water Balance Substance into Peripheral Vein, Percutaneous Approach (ICD-10-PCS; 2017-06-22)
DX: I62.03 Nontraumatic chronic subdural hemorrhage (principal); R29.810 Facial weakness; I10 Essential (primary) hypertension; F03.90 Unspecified dementia, unspecified severity, without behavioral disturbance, psychotic disturbance, mood disturbance, and anxiety; H53.459 Other localized visual field defect, unspecified eye; R41.3 Other amnesia; E78.5 Hyperlipidemia, unspecified; N40.0 Benign prostatic hyperplasia without lower urinary tract symptoms; E11.42 Type 2 diabetes mellitus with diabetic polyneuropathy; G81.94 Hemiplegia, unspecified affecting left nondominant side; Z85.038 Personal history of other malignant neoplasm of large intestine; Z85.048 Personal history of other malignant neoplasm of rectum, rectosigmoid junction, and anus; Z86.73 Personal history of transient ischemic attack (TIA), and cerebral infarction without residual deficits; Z95.0 Presence of cardiac pacemaker; Z87.891 Personal history of nicotine dependence; Z79.82 Long term (current) use of aspirin; Z90.49 Acquired absence of other specified parts of digestive tract; Z79.84 Long term (current) use of oral hypoglycemic drugs
CPT/HCPCS: 36415; 70450-TC; 71010-TC; 80053; 80061; 81003; 82607; 82746; 83036; 83721; 83735; 84100; 84443; 84484; 85025; 85027; 85610; 85730; 93005; 93010; 93306-TC; 93880-TC; 97116-GP; 97161-GP; 99285-25; G0378

== ENCOUNTER 2018-08-19 16:54 | Observation (INO) | payer OTHER, BC ==
[2018-08-19] MEDS ORDERED: SODIUM CHLORIDE 1,000 ML IV SCH (17:45)
[2018-08-19 17:48] VITALS: BMI 28.7
[2018-08-19 17:52] LABS: BASO % 0.2 % (0-2.0); EOS % 0.8 % (0-4.5); HEMATOCRIT 41.9 % (35.4-49); HEMOGLOBIN 14.3 GM/dL (11.7-16.9); MCH 32.3 pg (25.7-33.7); MCHC 34.2 g/dl (32.0-35.9); MEAN CELL VOLUME 94.4 fl (80-96); MEAN PLT VOLUME 9.5 fl (7.5-11.1); MONO % 9.4 % (3.8-10.2); NEUT % 75.6 % (42.8-82.8); PLATELET COUNT 232 K/MM3 (134-434); RBC 4.44 M/mm3 (4.00-5.60); RDW 13.5 % (11.9-15.9); WHITE BLOOD COUNT 7.2 K/mm3 (4.0-10.0)
[2018-08-19 18:06] LABS: INR 1.15 (0.83-1.09); PROTHROMBIN TIME (PATIENT) 13.6 SEC (9.7-13.0)
[2018-08-19 18:28] LABS: ALBUMIN 3.5 g/dl (3.4-5.0); ALK PHOS 40 U/L (45-117); ANION GAP 9 MMOL/L (8-16); BILIRUBIN,TOTAL 0.4 mg/dL (0.2-1); BLOOD UREA NITROGEN 25 mg/dL (7-18); CALCIUM 8.7 mg/dL (8.5-10.1); CHLORIDE 102 mmol/L (98-107); CHOLESTEROL 107 mg/dL (50-200); CO2 32 mmol/L (21-32); CREATININE 1.3 mg/dL (0.55-1.3); GLUCOSE,RANDOM 109 mg/dL (74-106); HDL CHOLESTEROL 44 mg/dL (40-60); POTASSIUM 3.5 mmol/L (3.5-5.1); SGOT/AST 16 U/L (15-37); SGPT/ALT 20 U/L (13-61); SODIUM 143 mmol/L (136-145); TOT PROT 7.2 g/dl (6.4-8.2); TRIGLYCERIDES 147 mg/dL (0-150)
--- NOTE | 2018-08-19 18:30 | PDOC ---
History of Present Illness - General History Source: Family Exam Limitations: Unresponsive - History of Present Illness Initial Comments: 08/19/18 18:31 The patient is a 88 year old male, with a significant past medical history of dementia, Colon/Rectal CA, PPM, CVA, Diabetes, HTN, who presents to the emergency department with, altered mental status. As per patient, family his last known well was 2:30pm and he was seen by family at 3:50pm altered, unresponsive, and nonverbal. Patient arrived to the facility at 5:00pm not following basic commands, altered, and nonverbal. Patient is a poor historian due to his clinical condition. Allergies: NKDA Past surgical history: Colon resection, appendectomy, PPM placement Social history: Former smoker. Primary Care Physician: Dr. Oates <Galen Taylor - Last Filed: 08/19/18 18:53> <Kateryna Gómez - Last Filed: 08/19/18 19:25> - General Chief Complaint: CVA/TIA Stated Complaint: AMS Time Seen by Provider: 08/19/18 16:56 Past History <Galen Taylor - Last Filed: 08/19/18 18:53> - Past Medical History Anemia: No Asthma: No Cancer: Yes (COLON/RECTAL 1978/1979) Cardiac Disorders: Yes (PPM/VALVE REPLACEMENT) CVA: Yes (2004 - residual visual deficit) COPD: No CHF: No Dementia: Yes (NIDDM) Diabetes: Yes GI Disorders: No Disorders: No HTN: Yes Hypercholesterolemia: Yes Liver Disease: No Seizures: No Thyroid Disease: No - Surgical History Abdominal Surgery: Yes (COLON RESECTION - COLOSTOMY REVERSED) Appendectomy: Yes Cardiac Surgery: Yes (ppm, vaulve) Cholecystectomy: No Lung Surgery: No Neurologic Surgery: Yes (SPINAL LAMINECTOMY ') Orthopedic Surgery: Yes (TENDON/HAND SX) - Immunization History Immunization Up to Date: No - Suicide/Smoking/Psychosocial Hx Smoking History: Former smoker Have you smoked in the past 12 months: No If you are a former smoker, when did you quit?: 20 YRS AGO Information on smoking cessation initiated: No Hx Alcohol Use: No Drug/Substance Use Hx: No Substance Use Type: Alcohol <Kateryna Gómez - Last Filed: 08/19/18 19:25> - Past Medical History Allergies/Adverse Reactions: Allergies Allergy/AdvReac Type Severity Reaction Status Date / Time No Known Allergies Allergy Verified 08/19/18 17:34 Home Medications: Ambulatory Orders Ascorbic Acid [Vitamin C] 500 mg PO DAILY 08/19/18 Aspirin [ASA -] 81 mg PO DAILY 08/19/18 Cholecalciferol (Vitamin D3) [Vitamin D3] 1,000 unit PO DAILY 08/19/18 Donepezil HCl 5 mg PO DAILY 08/19/18 Fenofibrate Nanocrystallized [Fenofibrate] 145 mg PO DAILY 08/19/18 Furosemide 20 mg PO DAILY 08/19/18 Linagliptin [Tradjenta] 5 mg PO DAILY 08/19/18 Nebivolol HCl [Bystolic] 10 mg PO DAILY 08/19/18 Potassium Chloride 10 meq PO DAILY 08/19/18 Pravastatin Sodium [Pravachol] 40 mg PO HS 08/19/18 Risperidone 0.5 mg PO DAILY 08/19/18 Sertraline HCl [Zoloft -] 50 mg PO DAILY 08/19/18 Tamsulosin HCl [Flomax] 0.4 mg PO DAILY 08/19/18 traZODone HCL [Trazodone HCl] 25 mg PO HS 08/19/18 Review of Systems - Review of Systems Able to Perform ROS?: No Comments:: Unable to perform an ROS due to patient's clinical condition. <Galen Taylor - Last Filed: 08/19/18 18:53> *Physical Exam - Vital Signs Last Vital Signs Temp Pulse Resp BP Pulse Ox 98.7 F 61 18 123/74 100 08/19/18 17:35 08/19/18 17:35 08/19/18 17:35 08/19/18 17:35 08/19/18 17:35 - Physical Exam Comments: GENERAL: Well-appearing, well-nourished. No apparent distress. HEENT: Normocephalic, atraumatic. PERRL, EOM intact. CARDIOVASCULAR: Normal S1, S2. Regular rate and rhythm. PULMONARY: Clear to auscultation bilaterally. ABDOMEN: Soft, non-distended, non-tender. EXTREMITIES: Normal ROM in all four extremities. No gross deformities. SKIN: Warm, dry. No rash +NEUROLOGICAL: Unresponsive. Nonverbal. Altered. <Galen Taylor - Last Filed: 08/19/18 18:53> - Vital Signs Last Vital Signs Temp Pulse Resp BP Pulse Ox 98.7 F 61 18 123/74 100 08/19/18 17:35 08/19/18 17:35 08/19/18 17:35 08/19/18 17:35 08/19/18 17:35 <RicoLucience Powers - Last Filed: 08/19/18 19:25> NIH Stroke Scale - Last Known Well Date/Time & Onset Date Last Known Well: 08/19/18 Time Last Known Well: 14:30 - Initial Evaluation Level of consciousness: Alert Ask patient the month and their age: Both incorrect Ask patient to open & close eyes; make fist and let go: Obeys both correctly Best gaze (horizontal eye movement): Normal Visual field testing: No visual field loss Facial paresis (Show teeth/raise eyebrows/close eyes tight): Normal symmetrical movement Motor Function: Left Arm: Normal Motor Function: Right Arm: Normal (extends arm 90 (or 45) degrees for 10 seconds without drift Motor Function: Left Leg: Normal (extends leg 30 degrees for 5 seconds without drift) Motor Function: Right Leg: Drift Limb Ataxia: No ataxia Sensory(Use pinprick test arms,legs,trunk,face/side to side): Normal Best language (Describe picture, name items, read sentences): No Aphasia Dysarthria (read several words): Normal articulation Extinction and Inattention: No abnormality (pt has a history of a previous stroke and dementia) - Total Score NIH Stroke Scale Score: 3 <Kateryna Gómez - Last Filed: 08/19/18 19:25> tPA Exclusion checklist 3-4.5h - Time Elapsed Date last known well: 08/19/18 Time last known well: 14:30 Elaspsed time: Day(s) and 4 Hour(s) and 53 Minutes - Thrombolytic Therapy Candidate Is patient eligible for thrombolytic therapy: No - Exclusion Criteria 3-4.5 hr SBP greater than 185 or DBP greater than 110mmHg despite tx: No Recent IC/spinal surgery,head trauma or stroke<3mos.: No Hx IC hemorrhage, IC neoplasm, AV malformation or aneurysm: No Active internal bleeding: No Blding diathesis(low plt ct, inc PTT,INR>1.7 or use of NOAC): No Symptoms suggest subarachnoid hemorrhage: No CT demonstrates multilobar infarct(>1/3 cerebral hemiphere): No Arterial puncture at noncompressible site in previous 7 days: No Blood glucose concentration less than 50mg/dL (2.7mmol/L): No - Relative Exclusion Criteria 3-4.5 hr Life expectancy <1 yr or severe co-morbid illness: No : No Patient/family refused: No Rapid improvement: Yes Stroke severity too mild: Yes Recent acute VA (w/in previous 3 months): No Seizure at onset with postictal residual neuro impairments: No Major surgery or serious trauma w/in previous 14 days: No Recent GI or hemorrhage (w/in previous 21 days): No - Add'l Relative Exclusion 3-4.5 hr Age > 80: Yes Hx of both diabetes AND prior ischemic stroke: No Taking an oral anticoagulant regardless of INR: No NIHSS >25: No - Ineligibility reason(s) Reasons No tPA given: See reason(s) noted above (pt 's symptoms resolved) <Kateryna Gómez - Last Filed: 08/19/18 19:25> Heart Score/ECG Review - History History: Slightly suspicious - Electrocardiogram EKG: Non specific repolarization disturbance - Age Age: >/= 65 - Risk Factors Risk Factors Heart Score: Yes Hx Hypertension Based on the list above the patient has:: 1-2 risk factors - Troponin Troponin: </= normal limit - Score Heart Score - Total: 4 - ECG Impressions Comment:: 08/19/18 19:24 atrial paced rhythm <Kateryna Gómez - Last Filed: 08/19/18 19:25> Critical Care Time/[facility] Note - Medical Decision Making Note: 08/19/18 18:32 Repeat exam done at 6:12pm Patient is responsive. Following basic commands. Talking to family. EXAM: CT Head wo TECHNIQUE: Non-contrast axial images were obtained. Coronal and sagittal images were also generated. FINDINGS: The sulci and ventricles are moderately prominent, suggesting age related involutional changes. There is a small chronic subdural hygroma superficial to the right frontal and parietal lobes. There are no intracranial hemorrhages or evidence of an intra-axial mass lesion. Incidentally noted are multiple calcifications along the interhemispheric falx There are multiple, scattered focal, patchy and confluent deep white matter chronic microvascular ischemic changes in the frontal and parietal lobes, bilaterally. Cerebral christie/white matter differentiation is preserved, without clear evidence of an acute ischemic lesion at this time. Orbital and petrous structures, cerebellopontine angles, and posterior fossa appear unremarkable. The paranasal and mastoid sinuses are clear. IMPRESSION: Multiple, scattered, deep cerebral white matter chronic microvascular ischemic changes. Moderate age related involutional changes. small chronic subdural hygroma superficial to the right frontal and parietal lobes. The study is otherwise unremarkable. No intracranial hemorrhages, extra-axial fluid collections or intra-axial mass lesion. One or more of the following dose reduction techniques were used: automated exposure control, adjustment of the mA and/or kV according to patient size, use of iterative reconstructive technique. Read by: Asael Carr MD. 18:[address] Bello, legal services professional neurologist, case was discussed. <Galen Taylor - Last Filed: 08/19/18 18:53> *DC/Admit/Observation/Transfer - Attestations Scribe Attestion: 08/19/18 18:32 Documentation prepared by Galen Taylor, acting as medical file clerk for Kateryna Gómez MD. <Galen Taylor - Last Filed: 08/19/18 18:53> - Discharge Dispostion Decision to Admit order: Yes <Kateryna Gómez - Last Filed: 08/19/18 19:25> Diagnosis at time of Disposition: TIA (transient ischemic attack) Dementia Qualifiers: Dementia type: unspecified type Dementia behavioral disturbance: without behavioral disturbance Qualified Code(s): F03.90 - Unspecified dementia without behavioral disturbance CAD (coronary artery disease) Qualifiers: Coronary Disease-Associated Artery/Lesion type: unspecified vessel or lesion type [place] vs. transplanted heart: [place] heart Associated angina: without angina Qualified Code(s): I25.10 - Atherosclerotic heart disease of [place] coronary artery without angina pectoris - Referrals Referrals: Librado Oates MD [Primary Care Provider] - - Patient Instructions - Post Discharge Activity
[2018-08-19] MEDS ORDERED: ASPIRIN 81 MG CHEWABLE TABLETS PO ONE (18:37)
[2018-08-19] MEDS ORDERED: ASPIRIN 325 MG TABLET ONE (20:02)
[2018-08-19] MEDS ORDERED: LACTATED RINGERS SOLUTION 1,000 ML/1,000 ML INFUS.BAG IV SCH ×2 (20:45→20:57)
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
[2018-08-19] MEDS ORDERED: traZODone HCL 50 MG TABLET (FP) PO SCH (22:00)
[2018-08-19] MEDS ORDERED: ATORVASTATIN CA 10 MG TABLET (FP) PO SCH (22:00)
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
[2018-08-20] MEDS ORDERED: ATORVASTATIN CA 10 MG TABLET (FP) ONE (00:26)
[2018-08-20] MEDS ORDERED: risperiDONE 0.5 MG TABLET (FP) ONE (00:26)
[2018-08-20] MEDS ORDERED: SERTRALINE HCL 50 MG TABLET (FP) PO ONE (00:27)
[2018-08-20] MEDS ORDERED: SERTRALINE HCL 50 MG TABLET (FP) ONE (00:28)
[2018-08-20] MEDS: risperiDONE 0.5 MG TABLET (FP) PO SCH ×2 (00:46→09:48)
[2018-08-20] MEDS: INSULIN SLIDING SCALE (NOVOLOG) 1 VIAL SQ SCH ×3 (00:46→11:42)
--- NOTE | 2018-08-20 03:44 | PN ---
Progress Note (short form) - Note Progress Note: Patient was noted to be DNR. Order put in. Pending paper work.
[2018-08-20] MEDS ORDERED: TAMSULOSIN HCL 0.4 MG CAP PO SCH (08:30)
--- NOTE | 2018-08-20 09:54 | CON.NEURO ---
Consult - Alcohol/Substance Use Hx Alcohol Use: No - Smoking History Smoking history: Former smoker Have you smoked in the past 12 months: No If you are a former smoker, when did you quit?: 20 YRS AGO Home Medications - Allergies Allergies/Adverse Reactions: Allergies Allergy/AdvReac Type Severity Reaction Status Date / Time No Known Allergies Allergy Verified 08/19/18 17:34 - Home Medications Home Medications: Ambulatory Orders Ascorbic Acid [Vitamin C] 500 mg PO DAILY 08/19/18 Aspirin [ASA -] 81 mg PO DAILY 08/19/18 Cholecalciferol (Vitamin D3) [Vitamin D3] 1,000 unit PO DAILY 08/19/18 Donepezil HCl 5 mg PO DAILY 08/19/18 Fenofibrate Nanocrystallized [Fenofibrate] 145 mg PO DAILY 08/19/18 Furosemide 20 mg PO DAILY 08/19/18 Linagliptin [Tradjenta] 5 mg PO DAILY 08/19/18 Nebivolol HCl [Bystolic] 10 mg PO DAILY 08/19/18 Potassium Chloride 10 meq PO DAILY 08/19/18 Pravastatin Sodium [Pravachol] 40 mg PO HS 08/19/18 Risperidone 0.5 mg PO DAILY 08/19/18 Sertraline HCl [Zoloft -] 50 mg PO DAILY 08/19/18 Tamsulosin HCl [Flomax] 0.4 mg PO DAILY 08/19/18 traZODone HCL [Trazodone HCl] 25 mg PO HS 08/19/18 Physical Exam-Neuro Vital Signs: Vital Signs Temperature 98 F 08/20/18 05:37 Pulse Rate 61 08/20/18 05:37 Respiratory Rate 20 08/20/18 05:37 Blood Pressure 152/92 08/20/18 05:37 O2 Sat by Pulse Oximetry (%) 100 08/19/18 17:35 Labs: CBC, BMP 08/19/18 17:42 08/19/18 17:42 INR, PTT INR 1.15 (0.83-1.09) H 08/19/18 17:42 Assessment/Plan cc Transient LOC lasting few hours HPI 88 year old male history of colon cancer, DM, HTN, Alzheimer disease, pacemaker. He also have history of depression and multiple psych medication. He became unresponsive lasted for few hours and slowly he waking up. THere was no seiuzre like activity, no incontinence . His ct head was unremarkable and he is almost back to his normal state. He has one stroke 2004 and completely recovered. He is able to walk in between rooms / PAST MEDICAL HISTORY: history of colon/rectal cancer, CVA (2004), DM, HTN, alzheimer's aortic valve replacement, and pacemaker PAST SURGICAL HISTORY: colon resection, appendectomy Social History: Smoking: former smoker Alcohol: denies Drugs: Family History: denies family history of CVA, significant cardiac history with two brothers having [place] NKDA HOME MEDICATIONS: Home Medications Medication Instructions Recorded Ascorbic Acid [Vitamin C] 500 mg PO DAILY 08/19/18 Aspirin [ASA -] 81 mg PO DAILY 08/19/18 Cholecalciferol (Vitamin D3) 1,000 unit PO DAILY 08/19/18 [Vitamin D3] Donepezil HCl 5 mg PO DAILY 08/19/18 Fenofibrate Nanocrystallized 145 mg PO DAILY 08/19/18 [Fenofibrate] Furosemide 20 mg PO DAILY 08/19/18 Linagliptin [Tradjenta] 5 mg PO DAILY 08/19/18 Nebivolol HCl [Bystolic] 10 mg PO DAILY 08/19/18 Potassium Chloride 10 meq PO DAILY 08/19/18 Pravastatin Sodium [Pravachol] 40 mg PO HS 08/19/18 Risperidone 0.5 mg PO DAILY 08/19/18 Sertraline HCl [Zoloft -] 50 mg PO DAILY 08/19/18 Tamsulosin HCl [Flomax] 0.4 mg PO DAILY 08/19/18 traZODone HCL [Trazodone HCl] 25 mg PO HS 08/19/18 Neurological Examination Alert, closes eye and able to talk and respnd. He is oriented x 1 he think he is in his chair and could not tell what date or where he is vss eomi , no face asmmetry, speech is normal moving all extremity sensation is normal ct head is normal Assessment: Acute confusional state lasting few hours, ct head and now back to basline. Clinically less likely to be stroke, meningitis . Seizure is possible, though there is no tonic clonic activit. Most likley he may have transient metabolic encphalopathy vs Medical induced Plan- suggest to repeat ct head for any interval change for acute stroke, as he cant get mri of brain -eeg - SW consult at the request of patient - continue supportive care - aspirin can be added and vitamin b12 can be given as outpatient Thanking you so much Luis Bello MD
[2018-08-20] MEDS ORDERED: ASPIRIN 81 MG CHEWABLE TABLETS PO SCH (10:00)
[2018-08-20] MEDS ORDERED: risperiDONE 0.5 MG TABLET (FP) PO SCH (10:00)
[2018-08-20] MEDS ORDERED: SERTRALINE HCL 50 MG TABLET (FP) PO SCH (10:00)
[2018-08-20] MEDS ORDERED: FENOFIBRIC ACID 135 MG CAP PO SCH (10:00)
[2018-08-20] MEDS ORDERED: NEBIVOLOL 10 MG TABLET (FP) PO SCH (10:00)
[2018-08-20] MEDS ORDERED: DONEPEZIL HCL 5 MG TABLET (FP) PO SCH (10:00)
--- NOTE | 2018-08-20 10:32 | EKG ---
Test Reason : Blood Pressure : / mmHG Vent. Rate : 060 BPM Atrial Rate : 060 BPM P-R Int : 302 ms QRS Dur : 174 ms QT Int : 484 ms P-R-T Axes : -05 058 004 degrees QTc Int : 484 ms Atrial-paced rhythm with prolonged AV conduction RIGHT BUNDLE BRANCH BLOCK ABNORMAL ECG WHEN COMPARED WITH ECG OF 22-JUN-2017 21:12, RIGHT BUNDLE BRANCH BLOCK HAS REPLACED NON-SPECIFIC INTRA-VENTRICULAR CONDUCTION BLOCK Confirmed by SANDRA URIAS MD ([id number]) on 08/20/2018 10:31:58 AM Referred By: Confirmed By:SANDRA URIAS MD
--- NOTE | 2018-08-20 11:27 | PN ---
Physical Exam: SUBJECTIVE: Patient seen and examined at bedside. Patient is slowly waking up, he is alert and oriented X1. he denies any CP/SOB/N/V fevers or chills OBJECTIVE: Vital Signs Period Temp Pulse Resp BP Sys/[place] Pulse Ox Last 24 Hr 98 F-99.5 F 61-65 16-20 123-152/74-92 100 GENERAL: The patient is lethargic, alert and oriented X1 EYES: no scleral icterus, inpoint pupils NECK: no JVD, no lymphadenopathy LUNGS: CTA B/L; no rales, rhonchi or wheezing HEART: Regular rate and rhythm, S1, S2 without murmur, rub or gallop. ABDOMEN: Soft, nontender, nondistended, normoactive bowel sounds, no guarding, no rebound, no hepatosplenomegaly, no masses. EXTREMITIES: 2+ pulses, warm, well-perfused, 1+ pitting edema B/L. NEUROLOGICAL: Cranial nerves II through XII grossly intact. Normal speech, gait not observed. no facial assymetry PSYCH: Normal mood, normal affect. SKIN: Warm, dry, normal turgor, no rashes or lesions noted Laboratory Results - last 24 hr 08/19/18 08/19/18 08/19/18 17:26 17:42 17:42 WBC 7.2 RBC 4.44 Hgb 14.3 Hct 41.9 MCV 94.4 MCH 32.3 MCHC 34.2 RDW 13.5 Plt Count 232 MPV 9.5 Absolute Neuts (auto) 5.4 Neutrophils % 75.6 Lymphocytes % 14.0 Monocytes % 9.4 Eosinophils % 0.8 Basophils % 0.2 Nucleated RBC % 0 PT with INR 13.60 H INR 1.15 H Sodium Potassium Chloride Carbon Dioxide Anion Gap BUN Creatinine Creat Clearance w eGFR POC Glucometer [phone] Random Glucose Calcium Total Bilirubin AST ALT Alkaline Phosphatase Creatine Kinase Troponin I Total Protein Albumin Triglycerides Cholesterol Total LDL Cholesterol HDL Cholesterol Vitamin B12 Serum Folate TSH Blood Type Antibody Screen 08/19/18 08/19/18 08/19/18 17:42 17:42 21:30 WBC RBC Hgb Hct MCV MCH MCHC RDW Plt Count MPV Absolute Neuts (auto) Neutrophils % Lymphocytes % Monocytes % Eosinophils % Basophils % Nucleated RBC % PT with INR INR Sodium 143 Potassium 3.5 Chloride 102 Carbon Dioxide 32 Anion Gap 9 BUN 25 H Creatinine 1.3 Creat Clearance w eGFR 52.34 POC Glucometer Random Glucose 109 H Calcium 8.7 Total Bilirubin 0.4 AST 16 ALT 20 Alkaline Phosphatase 40 L Creatine Kinase 41 Troponin I 0.04 0.05 Total Protein 7.2 Albumin 3.5 Triglycerides 147 Cholesterol 107 Total LDL Cholesterol 54 HDL Cholesterol 44 Vitamin B12 322 Serum Folate 25 H TSH 1.98 D Blood Type A POSITIVE Antibody Screen Negative 08/19/18 08/20/18 23:55 05:56 WBC RBC Hgb Hct MCV MCH MCHC RDW Plt Count MPV Absolute Neuts (auto) Neutrophils % Lymphocytes % Monocytes % Eosinophils % Basophils % Nucleated RBC % PT with INR INR Sodium Potassium Chloride Carbon Dioxide Anion Gap BUN Creatinine Creat Clearance w eGFR POC Glucometer [phone] Random Glucose Calcium Total Bilirubin AST ALT Alkaline Phosphatase Creatine Kinase Troponin I Total Protein Albumin Triglycerides Cholesterol Total LDL Cholesterol HDL Cholesterol Vitamin B12 Serum Folate TSH Blood Type Antibody Screen Active Medications Generic Name Dose Route Start Last Admin Trade Name Freq PRN Reason Stop Dose Admin Aspirin 81 mg 08/20/18 10:00 08/20/18 09:46 Asa - PO 81 mg DAILY DEBRA Administration Atorvastatin Calcium 10 mg 08/19/18 22:00 08/20/18 00:47 Lipitor - PO Not Given HS DEBRA Donepezil HCl 5 mg 08/20/18 10:00 08/20/18 09:45 Aricept - PO 5 mg DAILY DEBRA Administration Fenofibric Acid 135 mg 08/20/18 10:00 08/20/18 09:47 Trilipix - PO 135 mg DAILY DEBRA Administration Sodium Chloride 1,000 mls @ 42 mls/hr 08/19/18 17:45 08/19/18 17:58 Normal Saline - IV 42 mls/hr ASDIR DEBRA Administration Lactated Ringer's 1,000 ml in 1,000 mls @ 40 mls/hr 08/19/18 20:57 08/19/18 21:23 Lactated Ringers Solution IV 40 mls/hr ASDIR DEBRA Administration Insulin Aspart 1 vial 08/19/18 22:00 08/20/18 06:01 Novolog Vial Sliding Scale - SQ Not Given ACHS DEBRA Protocol Nebivolol 10 mg 08/20/18 10:00 08/20/18 09:46 Bystolic - PO 10 mg DAILY DEBRA Administration Risperidone 0.5 mg 08/20/18 00:45 08/20/18 09:48 Risperdal - PO 0.5 mg BID DEBRA Administration Sertraline HCl 50 mg 08/20/18 10:00 08/20/18 09:48 Zoloft - PO 50 mg DAILY DEBRA Administration Tamsulosin HCl 0.4 mg 08/20/18 08:30 08/20/18 09:45 Flomax - PO 0.4 mg DAILY@0830 DEBRA Administration Trazodone HCl 25 mg 08/19/18 22:00 08/20/18 00:46 Desyrel - PO 25 mg HS DEBRA Administration ASSESSMENT/PLAN: 88 y/o male with PMH of CVA (2004), TIA, colon ca, aortic valve repair, pacemaker, alzhemiers, DM, HTN presents to the ED after being found unarousable , with questionable L facial droop at home by his daughter. #AMS -first head CT showed no acute pathology; repeat head CT ordered to evaluate for interval changes since patient cant get MRI -echo pending- f/u results -carotid doppler/neck CTA pending -seen by Dr. Bello- recs appreciated -continue with ASA 81 daily -lipitor 10 daily -TSH , vit b12 within normal limits -PT eval -SW consult placed -speech and swallow eval placed #HTN -please resume medications -holding lasix, continue the bystolic #DM -holding home diabetes meds -ISS -BGMS ACHS #Alzheimers -c/w home medications F/E/N NS replete electrolytes when necessary NPO until speech and swallow eval DVT PPX:SCDS Problem List - Problems (1) CAD (coronary artery disease) Code(s): I25.10 - ATHSCL HEART DISEASE OF [place] CORONARY ARTERY W/O ANG PCTRS Qualifiers: Coronary Disease-Associated Artery/Lesion type: unspecified vessel or lesion type [place] vs. transplanted heart: [place] heart Associated angina: without angina Qualified Code(s): I25.10 - Atherosclerotic heart disease of [place] coronary artery without angina pectoris (2) Dementia Code(s): F03.90 - UNSPECIFIED DEMENTIA WITHOUT BEHAVIORAL DISTURBANCE Qualifiers: Dementia type: unspecified type Dementia behavioral disturbance: without behavioral disturbance Qualified Code(s): F03.90 - Unspecified dementia without behavioral disturbance Visit type - Emergency Visit Emergency Visit: Yes ED Registration Date: 08/19/18 Care time: The patient presented to the Emergency Department on the above date and was hospitalized for further evaluation of their emergent condition. - New Patient This patient is new to me today: Yes Date on this admission: 08/20/18 - Critical Care Critical Care patient: No
[2018-08-20 14:11] LABS: URINE APPEARANCE CLEAR; URINE BILIRUBIN NEGATIVE (<2.0 mg/dL); URINE COLOR LTYELLOW; URINE GLUCOSE (UA) NEGATIVE (NEGATIVE); URINE KETONE NEGATIVE (NEGATIVE); URINE LEUK ESTERASE NEGATIVE (NEGATIVE); URINE NITRITE NEGATIVE (NEGATIVE); URINE PROTEIN NEGATIVE (NEGATIVE); URINE UROBILINOGEN NEGATIVE mg/dL (0.2-1.0)
--- NOTE | 2018-08-20 17:10 | CONSULT ---
Admitting History and Physical - Admission History of Present Illness: Patient is a 88 y/o male with a history of colon/rectal cancer, CVA (2004), DM, HTN, alzheimer's aortic valve replacement, and pacemaker who presents for altered mental status. Chart reviewed. Arrived in ER- Pt had signed out AMA. - Smoking History Smoking history: Former smoker Have you smoked in the past 12 months: No If you are a former smoker, when did you quit?: 20 YRS AGO - Alcohol/Substance Use Hx Alcohol Use: No History - Admission Reason For Visit: DEMENTIA, TRANSIENT ISCHEMIC ATTACK Speech Evaluation - Communication Primary Language: [place] - Speech Characteristics Articulation: Yes: Precise - Swallow Evaluation/Bedside Assessment A-P Transit: WFL Recommendations - Speech Evaluation, Impression/Plan Impression: Signed out AMA. Chart reviewed. Pt NOT examined.
[2018-08-20 17:23] VITALS: BP 160/90; PULSE 60; TEMP 98.4
--- NOTE | 2018-08-20 17:46 | PN ---
Teaching Attending Note Name of Resident: Monica Waller ATTENDING PHYSICIAN STATEMENT I saw the patient. I reviewed the resident's note and discussed the case with the resident. I agree with the resident's findings and plan as documented. SUBJECTIVE:went to assess patient and daughter was present at bedside. Very upset that no doctor has seen her father in the past 7 hours. States all the testing is negative and wants to know why he is not discharged. explained that I was just coming to assess the patient now and that we need to complete testing. states she wants to bring him home as he is back to his baseline mental status. states she did not need me to examine him because he was already seen by a neurologist. educated on risks of going home prior to testing is completed. Acknowledged risks and signed out ama. encourage to f/u with PMD this week.
== END 2018-08-20 20:29 | disposition left against medical advice (07) ==
LOC: JER 16:54 → JERBED 19:22 → UNDOADMOB 19:22 → INTOOBSV 19:22 → JERBED 20:41
PROVIDERS: ADMIT Internal Medicine; ATTEND Internal Medicine
PROC: 3E0337Z Introduction of Electrolytic and Water Balance Substance into Peripheral Vein, Percutaneous Approach (ICD-10-PCS; principal; 2018-08-19)
DX: R41.82 Altered mental status, unspecified (principal); G30.9 Alzheimer's disease, unspecified; F02.80 Dementia in other diseases classified elsewhere, unspecified severity, without behavioral disturbance, psychotic disturbance, mood disturbance, and anxiety; I25.10 Atherosclerotic heart disease of native coronary artery without angina pectoris; I10 Essential (primary) hypertension; E11.9 Type 2 diabetes mellitus without complications; E78.5 Hyperlipidemia, unspecified; I69.398 Other sequelae of cerebral infarction; R13.19 Other dysphagia; Z85.038 Personal history of other malignant neoplasm of large intestine; Z85.048 Personal history of other malignant neoplasm of rectum, rectosigmoid junction, and anus; Z79.82 Long term (current) use of aspirin; Z95.0 Presence of cardiac pacemaker; Z95.2 Presence of prosthetic heart valve
CPT/HCPCS: 36415; 70450-TC; 70498-TC; 71045-TC-FY; 80053; 81003; 82465; 82550; 82607; 82746; 82962; 83718; 83721; 84443; 84478; 84484; 85025; 85610; 86850; 86900; 86901; 93005; 93010; 93880-TC; 99285-25; G0378; J7030